=== PATIENT | male | born 1985 | race Caucasian/White ===

== ENCOUNTER 2017-06-04 13:28 | Observation (INO) ==
--- NOTE | 2017-06-04 15:49 | Emergency Department Note ---
START Narrative - START START: I examined this patient and my medical decision-making was reviewed with the Resident Physician. I agree with the documented findings, disposition and treatment plan as described except to the extent set forth below. 32 YO Male here for abd pain. will check labs, Urine, possible CT scan to eval appendix as well vss afebrile
[2017-06-04] MEDS ORDERED: *HR* Morphine 2 MG/ML SYRINGE IVP ONE (15:51)
[2017-06-04] MEDS ORDERED: Ondansetron 4 MG/2 ML VIAL IVP ONE (15:51)
--- NOTE | 2017-06-04 15:55 | Emergency Department Note ---
Disposition Clinical Impression: Acute appendicitis Qualifiers: Acute appendicitis type: unspecified acute appendicitis type Qualified Code(s) : K35.80 - Unspecified acute appendicitis Disposition: Admitted As Inpatient Condition: Good Referrals: NONE,PCP [Primary Care Provider] - Forms: Work/School Release, ED Satisfaction Letter Time of Disposition: 17:26 Abdominal Pain HPI - General Chief Complaint: ED Abdominal Pain Stated Complaint: Appendicitis Time Seen by Provider: 06/04/17 15:46 Source: patient, EMS Mode of arrival: EMS Limitations: no limitations Nursing Notes Reviewed: Yes Vital Signs Reviewed: Yes - History of Present Illness HPI Narrative: 32-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 Patient states he began to experience pain around his umbilical area 1 AM this morning. Pain was severe described as a throbbing sensation. He attempted to sleep it off cannot. States pain has moved gradually to the right lower quadrant. He has some nausea no vomiting. Denies any fever, cough, recent illness. Denies any chest pain or shortness of breath. Denies any urinary symptoms. Last bowel movement 2 days ago. No prior abdominal surgeries. States he had a recent endoscopy performed by GI Dr. Chong and recently started on omeprazole. Denies any bloody stool or black tarry stool. Went to the urgent care for evaluation and was sent here. Pain continues to process. Labs are ordered prior to my evaluation. Will get a CT scan to evaluate appendix. Pt Subjective Complaint: abdominal pain Pain Scale: 9 - Related Data Home Medications Medication Instructions Recorded Confirmed Omeprazole [PriLOSEC] 40 mg PO DAILY 12/26/16 06/04/17 Allergies Allergy/AdvReac Type Severity Reaction Status Date / Time No Known Allergies Allergy Verified 06/04/17 12:26 All systems ED: reviewed and negative except as stated. Review of Systems: As Per HPI Constitutional: Denies: fever, chills Cardiovascular: Denies: chest pain, dyspnea on exertion Respiratory: Denies: cough, dyspnea Gastrointestinal: Reports: abdominal pain, nausea. Denies: vomiting, diarrhea, melena, hematochezia Genitourinary: Denies: urgency, dysuria, frequency, hematuria, testicular pain Musculoskeletal: Denies: back pain, neck pain Integumentary: Denies: rash, abrasion, lesions Neurological: Denies: headache, weakness Abdominal Pain PMH - Past Medical History Medical history: Reports: GERD Male Surgical History: Reports: vasectomy Psychiatric history: Reports: no psych history - Social History Smoking status: Former smoker Alcohol use: Reports: occasionally Drug use: Reports: none Physical Exam - General Limitations: no limitations General appearance: alert, in no apparent distress - Head Head exam: atraumatic, normocephalic, normal inspection - Eye Eye exam: Present: normal appearance, EOMI. Absent: scleral icterus - ENT ENT exam: normal exam, normal oropharynx, mucous membranes moist - Neck Neck exam: Present: normal inspection, full ROM, trachea midline - Chest Chest inspection: Present: normal inspection, symmetric chest wall rise - Respiratory Respiratory exam: Present: normal lung sounds bilaterally. Absent: respiratory distress, wheezes - Cardiovascular Cardiovascular exam: Present: regular rate, normal rhythm, normal heart sounds. Absent: systolic murmur, diastolic murmur - Abdominal Exam Abdominal exam: Present: soft, tenderness, normal bowel sounds, obturator sign, tenderness at McBurney's Point. Absent: distention, guarding, rebound, rigidity , Mauricio's sign, Rovsing's sign Abdominal tenderness: Present: RLQ, mild - Extremities Exam Extremities exam: Present: normal inspection, full ROM, normal capillary refill. Absent: tenderness, pedal edema - Back Exam Back exam: Present: normal inspection, full ROM. Absent: tenderness, CVA tenderness (R), CVA tenderness (L) - Neurological Exam Neurological exam: Present: alert, oriented X3 - Skin Skin exam: Present: warm, dry, intact, normal color Course - Reevaluation(s) Reevaluation #1: CT shows findings consistent with appendicitis. Patient last had meal at [address] Garcia is currently in the room evaluated the patient. Zosyn has been ordered antibiotic. She is obtaining surgical consent. Patient is going to the operating room. Pain is currently controlled at this time after morphine. Impression is appendicitis. Time: 17:23 - Consultations Consultation #1: Spoke to Dr. Ferris, surgeon, will come evaluate for appendicitis. No further orders at this time. Time: 17:00 Vital Signs Temperature 98 F 06/04/17 14:04 Pulse Rate 69 06/04/17 14:04 Respiratory Rate 16 06/04/17 14:04 Blood Pressure 110/51 06/04/17 14:04 O2 Sat by Pulse Oximetry 98 06/04/17 14:04 Temperature 98 F 06/04/17 14:04 Pulse Rate 75 06/04/17 17:10 Respiratory Rate 18 06/04/17 17:10 Blood Pressure 121/67 06/04/17 17:10 O2 Sat by Pulse Oximetry 97 06/04/17 17:10 Oxygen Delivery Oxygen Delivery Room Air Abdominal Pain - Medical Records Medical records reviewed: Yes I reviewed the patient's medical records. - Lab Data Lab results reviewed: Yes I reviewed the patient's lab results. Result diagrams: 06/04/17 15:57 06/04/17 15:57 Lab Results 06/04/17 06/04/17 Range/Units 15:57 15:57 WBC 17.0 H (4.3-11.1) K/mcL RBC 5.72 H (4.19-5.50) M/mcL Hgb 16.8 (12.9-16.9) g/dL Hct 49.3 (37.5-50.1) % MCV 86.2 (83.0-100.0) fL MCH 29.4 (28.0-33.3) pg MCHC 34.1 (31.6-35.5) g/dL RDW 12.0 (11.5-14.5) % Plt Count 226 (140-400) K/mcL MPV 10.0 (9.4-12.4) fL Immature Gran % 0.4 (0-4) % Seg Neutrophils % 83.3 % Lymphocytes % 10.3 % Monocytes % 5.4 % Eosinophils % 0.4 % Basophils % 0.2 % Neutrophils # 14.1 H (1.6-8.9) K/mcL Lymphocytes # 1.7 (0.6-4.6) K/mcL Monocytes # 0.9 (0.0-1.3) K/mcL Eosinophils # 0.1 (0.0-0.6) K/mcL Basophils # 0.0 (0.0-0.2) K/mcL Sodium 139 (136-145) mEq/L Potassium 3.7 (3.5-4.5) mEq/L Chloride 100 (98-109) mEq/L Carbon Dioxide 29 (19-29) mEq/L BUN 16 (8-26) mg/dL Creatinine 1.10 (0.72-1.25) mg/dL Est GFR ( Amer) > 60 (> 60) Est GFR (Non-Af Amer) > 60 (> 60) BUN/Creatinine Ratio 15 (6-26) Glucose 93 (70-99) mg/dL Calculated Osmolality 289 (280-300) Calcium 10.2 (8.6-10.8) mg/dL Total Bilirubin 0.8 (0.2-1.2) mg/dL Direct Bilirubin 0.3 (0.0-0.5) mg/dL Indirect Bilirubin 0.5 (0.0-1.2) mg/dL AST 35 H (5-34) Units/L ALT 52 (0-55) Units/L Alkaline Phosphatase 66 (38-126) Units/L Serum Total Protein 8.6 H (6.0-8.3) g/dL Albumin 4.8 (3.5-5.0) g/dL Globulin 3.8 H (2.4-3.5) g/dL Albumin/Globulin Ratio 1.3 (1.1-2.2) Lipase 14 (8-78) Units/L
[2017-06-04 16:33] LABS: Basophils % 0.2 %; Eosinophils # 0.1 K/mcL (0.0-0.6); Eosinophils % 0.4 %; Hematocrit 49.3 % (37.5-50.1); Hemoglobin 16.8 g/dL (12.9-16.9); Immature Granulocytes % 0.4 % (0-4); Lymphocytes # 1.7 K/mcL (0.6-4.6); Lymphocytes % 10.3 %; Mean Corpuscular HGB Conc 34.1 g/dL (31.6-35.5); Mean Corpuscular Hemoglobin 29.4 pg (28.0-33.3); Mean Corpuscular Volume 86.2 fL (83.0-100.0); Monocytes # 0.9 K/mcL (0.0-1.3); Monocytes % 5.4 %; Neutrophils # 14.1 K/mcL (1.6-8.9); Platelet Count 226 K/mcL (140-400); Red Blood Count 5.72 M/mcL (4.19-5.50); Segmented Neutrophils % 83.3 %
[2017-06-04 16:54] LABS: Alanine Aminotransferase 52 Units/L (0-55); Albumin 4.8 g/dL (3.5-5.0); Albumin/Globulin Ratio 1.3 (1.1-2.2); Alkaline Phosphatase 66 Units/L (38-126); Aspartate Amino Transferase 35 Units/L (5-34); BUN/Creatinine Ratio 15 (6-26); Bilirubin,Direct 0.3 mg/dL (0.0-0.5); Bilirubin,Indirect 0.5 mg/dL (0.0-1.2); Bilirubin,Total 0.8 mg/dL (0.2-1.2); Blood Urea Nitrogen 16 mg/dL (8-26); Calcium 10.2 mg/dL (8.6-10.8); Carbon Dioxide 29 mEq/L (19-29); Chloride 100 mEq/L (98-109); Globulin 3.8 g/dL (2.4-3.5); Glucose 93 mg/dL (70-99); Lipase 14 Units/L (8-78); Osmolality,Calculated 289 (280-300); Potassium 3.7 mEq/L (3.5-4.5); Sodium 139 mEq/L (136-145); Total Protein 8.6 g/dL (6.0-8.3); eGFR For African Americans > 60 (> 60); eGFR For Non-African Americans > 60 (> 60)
[2017-06-04] MEDS ORDERED: *HR* FentaNYL (PF) 100 MCG/2 ML VIAL ONE (17:10)
[2017-06-04] MEDS ORDERED: *HR* Propofol 200 MG/20 ML VIAL IVP ONE (17:11)
[2017-06-04] MEDS ORDERED: *HR* Midazolam HCl 2 MG/2 ML VIAL ONE (17:11)
[2017-06-04] MEDS ORDERED: Lidocaine -MPF 2% 2 ML VIAL ONE (17:12)
[2017-06-04] MEDS ORDERED: *HR* Rocuronium Bromide 50 MG/5 ML VIAL ONE (17:13)
[2017-06-04] MEDS ORDERED: Lidocaine -MPF 4% 5 ML AMPUL ONE (17:15)
[2017-06-04] MEDS ORDERED: Piperacillin/Tazobactam 3.375 GM in D5% in Water (Mini-Bag+) 100 ML IVPB ONE (17:16)
--- NOTE | 2017-06-04 17:30 | General Surg History&Physical ---
Date of Encounter: 06/04/17 Time of Encounter: 17:25 Assessment and Plan (1) Leukocytosis Current Visit: Yes Status: Acute The assessment and plan as outlined above was discussed with the patient and/or family members who expressed understanding and agreement. All questions were answered. start zosyn, trend wbc Qualifiers: Leukocytosis type: unspecified Qualified Code(s): D72.829 - Elevated white blood cell count, unspecified (2) Acute appendicitis Current Visit: Yes Status: Acute The assessment and plan as outlined above was discussed with the patient and/or family members who expressed understanding and agreement. All questions were answered. discussed CT and labs with patient, will plan laparoscopic appendectomy, possible open, risks and benefits discussed and patient wishes to proceed npo prn pain control zosyn ivf hydration gi/dvt prophylaxis Qualifiers: Acute appendicitis type: unspecified acute appendicitis type Qualified Code (s): K35.80 - Unspecified acute appendicitis History of Present Illness Chief complaint: abdominal pain HPI: Mr. Ramesh is a 32 year old male who developed upper abdominal pain last night. The pain is sharp and is now in the right lower quadrant. He has had nausea and dry heaves. Denies diarrhea. No fevers, chills or night sweats. He presented to ED today and CT shows acute appendicitis and wbc 17. Past Med Surg Social Fam HX - Past Medical History Source: patient Medical history: GERD (Barretts esophagus) Psychiatric history: no psych history - Past Surgical History Surgical History: vasectomy - Social History Smoking Status: Former smoker Smokeless Tobacco Status: No Alcohol use: occasionally Drug use: none Medications and Allergies Omeprazole [PriLOSEC] 40 mg PO DAILY 12/26/16 [History] 3 Allergy/AdvReac Type Severity Reaction Status Date / Time No Known Allergies Allergy Verified 06/04/17 12:26 Review of Systems All systems PM: reviewed and no additional remarkable complaints except as stated All systems PM: A 10-system review of systems was performed and is negative for pertinent findings except as documented above in the HPI. General Surgery Exam Initial Vital Signs Temp Pulse Resp BP Pulse Ox 98 F 69 16 110/51 98 06/04/17 14:04 06/04/17 14:04 06/04/17 14:04 06/04/17 14:04 06/04/17 14:04 - General physical appearance well developed, well nourished, no distress, moderate pain - Eyes PERRL, normal ocular movement - ENT normal mucosa, normocephalic - Neck trachea midline - Respiratory normal expansion, normal respiratory effort - Cardiovascular Cardiovascular exam: Present: RRR - Abdomen Abdomen general surgery: Present: bowel sounds present, soft, tender (RLQ no rebound or guarding) - Integumentary Integumentary general surgery: Present: warm and dry, no abnormal pigmentation - Neurologic Present: CN 2-12 grossly intact - Musculoskeletal Present: normal gait, normal posture - Psychiatric Psychiatric general surgery: Present: A&Ox3, speech is normal Results - Labs 06/04/17 15:57 06/04/17 15:57 Abnormal lab results WBC 17.0 K/mcL (4.3-11.1) H 06/04/17 15:57 RBC 5.72 M/mcL (4.19-5.50) H 06/04/17 15:57 Neutrophils # 14.1 K/mcL (1.6-8.9) H 06/04/17 15:57 AST 35 Units/L (5-34) H 06/04/17 15:57 Serum Total Protein 8.6 g/dL (6.0-8.3) H 06/04/17 15:57 Globulin 3.8 g/dL (2.4-3.5) H 06/04/17 15:57 Diabetes panel 06/04/17 Range/Units 15:57 Sodium 139 (136-145) mEq/L Potassium 3.7 (3.5-4.5) mEq/L Chloride 100 (98-109) mEq/L Carbon Dioxide 29 (19-29) mEq/L BUN 16 (8-26) mg/dL Creatinine 1.10 (0.72-1.25) mg/dL Glucose 93 (70-99) mg/dL Calcium 10.2 (8.6-10.8) mg/dL AST 35 H (5-34) Units/L ALT 52 (0-55) Units/L Alkaline Phosphatase 66 (38-126) Units/L Albumin 4.8 (3.5-5.0) g/dL Calcium panel 06/04/17 Range/Units 15:57 Calcium 10.2 (8.6-10.8) mg/dL Albumin 4.8 (3.5-5.0) g/dL Pituitary panel 06/04/17 Range/Units 15:57 Sodium 139 (136-145) mEq/L Potassium 3.7 (3.5-4.5) mEq/L Chloride 100 (98-109) mEq/L Carbon Dioxide 29 (19-29) mEq/L BUN 16 (8-26) mg/dL Creatinine 1.10 (0.72-1.25) mg/dL Glucose 93 (70-99) mg/dL Calcium 10.2 (8.6-10.8) mg/dL Adrenal panel 06/04/17 Range/Units 15:57 Sodium 139 (136-145) mEq/L Potassium 3.7 (3.5-4.5) mEq/L Chloride 100 (98-109) mEq/L Carbon Dioxide 29 (19-29) mEq/L BUN 16 (8-26) mg/dL Creatinine 1.10 (0.72-1.25) mg/dL Glucose 93 (70-99) mg/dL Calcium 10.2 (8.6-10.8) mg/dL Total Bilirubin 0.8 (0.2-1.2) mg/dL AST 35 H (5-34) Units/L ALT 52 (0-55) Units/L Alkaline Phosphatase 66 (38-126) Units/L Albumin 4.8 (3.5-5.0) g/dL All other labs normal. - Imaging CT scan - abdomen: report reviewed, image reviewed CT scan - pelvis: report reviewed, image reviewed
[2017-06-04 17:31] LABS: Bilirubin,Urine Negative (Negative); Blood,Urine Negative (Negative); Clarity,Urine Clear (Clear); Color,Urine Dark Yellow (Yellow); Glucose,Urine (UA) Normal (Normal); Ketones,Urine Trace mg/dL (Negative); Leukocyte Esterase,Urine Trace (Negative); Nitrite,Urine Negative (Negative); Protein,Urine 100 mg/dL (Neg-Trace); Specific Gravity,Urine > 1.030 (1.010-1.025); Urobilinogen,Urine Normal (Normal)
[2017-06-04 17:33] LABS: Bacteria,Urine None Seen per hpf (None-Few); Hyaline Casts,Urine Few per lpf (None-Few); Squamous Epithelial Cell,Urine Moderate per lpf (None-Few); WBC,Urine 0-3 per hpf (0-3)
[2017-06-04] MEDS ORDERED: *HR* Succinylcholine 200 MG/10 ML VIAL IVP ONE (17:44)
--- NOTE | 2017-06-04 18:06 | Anesthesia Evaluation PreOp ---
Date of Encounter: 06/04/17 Time of Encounter: 18:04 - Past History Planned Operation: Lap appy Cardiac History: Denies any Significant Hx Pulmonary History: Denies Any Significant HX GRE TUTOR History: Denies Any Significant HX Other Medical History: GERD (Deluna's; symptoms well controlled on medications) Anesthesia History: No Prior Anesthetic Complications (no fhx of problems w anesthesia) Alcohol Use: occasionally Drug use: none Medications and Allergies Omeprazole [PriLOSEC] 40 mg PO DAILY 12/26/16 [History] 3 Allergy/AdvReac Type Severity Reaction Status Date / Time No Known Allergies Allergy Verified 06/04/17 12:26 - Meds/Allergy Pre-op Review Medications Reviewed: Yes Allergies Reviewed: Yes Beta Blockers on Current Med List: No Anesthesia Results - Labs 06/04/17 15:57 06/04/17 15:57 Anesthesia Exam Last Vital Signs Temp 98 F 06/04/17 14:04 Pulse 75 06/04/17 17:10 Resp 18 06/04/17 17:47 BP 121/67 06/04/17 17:47 Pulse Ox 97 06/04/17 17:10 Weight: 112 kg NPO (# of Hours): >> 8 hrs - HEENT Pupil (Motor): Pupils equal, EOMI Mallampati: II Teeth: Normal Oral Opening: Greater than 3 - GRE TUTOR LOC: Oriented GRE TUTOR Motor: Normal RUE, Normal LUE, Normal RLE, Normal LLE, Normal Face - Cardiac Rhythm: Regular Murmur: None - Pulmonary Breath Sounds: bilateral Clear Respiratory Effort: Symmetrical Anesthesia Assess/Plan ASA Score: 1 Modified Walker Scale for Level of Consciousness: Cooperative, oriented, and tranquil Anesthetic Plan: General Monitoring Plan: Standard Monitors Recovery Plan: PACU
[2017-06-04] MEDS ORDERED: Dexamethasone 4 MG/ML VIAL ONE (18:27)
[2017-06-04] MEDS ORDERED: Ondansetron 4 MG/2 ML VIAL ONE (18:27)
[2017-06-04] MEDS ORDERED: Neostigmine Methylsulfate 3 MG/3 ML SYRINGE ONE (18:43)
[2017-06-04] MEDS ORDERED: *HR* Promethazine 25 MG/ML VIAL IVP PRN ×2 (18:46→21:06)
[2017-06-04] MEDS ORDERED: *HR* HYDROmorphone (PF) 1 MG/ML SYRINGE IVP PRN ×2 (18:46→21:06)
[2017-06-04] MEDS ORDERED: Ketorolac 30 MG/ML VIAL ONE (18:49)
--- NOTE | 2017-06-04 19:05 | Operative Note ---
Date of procedure: 06/04/17 Pre-op diagnosis: acute appendicitis Post-op diagnosis: same Procedure: Laparoscopic appendectomy Complications: none immediate Anesthesia: GETA, local Local Anesthetics: 0.5% Sensorcaine HCL SubQ (cc) (30) Surgeon: Cornelia Ferris Estimated blood loss (cc): 4 Specimen: appendix Condition: stable Disposition: PACU Procedure in Detail: The patient was brought into the operating suite and placed supine on the operating table. Sign-in was performed and everyone was in agreement. Anesthesia was induced and patient was endotracheally intubated by anesthesia without incident. An OG tube was placed by anesthesia. The abdomen was prepped and draped in the usual sterile fashion. A timeout was performed and again everyone was in agreement. A supraumbilical incision was made through the skin and the subcutaneous tissue with an 11 blade. Towel clamps were placed on either side of the umbilicus for retraction. S-retractors were used to dissect down to the anterior abdominal wall linea alba fascia. A Veress needle was placed into this incision and a water drop test confirmed placement and the abdomen was insufflated. We then entered the abdomen with the 5 mm 0 degree laparoscope on a 5 mm X-kathy trocar. The area under entry was visualized and there was no bleeding and no apparent bowel injury. We placed a suprapubic 5 mm port under direct visualization after first incising the skin with an 11 blade. The laparoscope was placed through this and we exchanged the supraumbilical port for a 12 mm port under direct visualization. We then placed another 5 mm port in the left lower quadrant position under direct visualization after first incising the skin with an 11 blade. The patient was placed in slight Trendelenburg left side down position. The cecum was located as was the appendix. The appendix was grasped and retracted anteriorly and caudally with a laparoscopic [place]. A [place] was used to dissect between the mesoappendix and the appendix at the base of the cecum. The mesoappendix was transected with a laparoscopic flex-ex ETS stapler using a white load. The appendix was transected at the base of the cecum with the same stapler utilizing a white load. The appendix was placed in a laparoscopic Endo Catch bag and removed via the supraumbilical incision site. Both staple lines were evaluated and there was no bleeding and both staple lines were intact. The area was irrigated with sterile saline which was then suctioned free from the abdomen. The insufflation was suctioned free from the abdomen and all trochars removed. We closed the abdominal wall at the supraumbilical incision site with an 0 Vicryl [id number] stitch. A 30 cc of 0.5% Marcaine was injected subcutaneously at the 3 port sites. The skin at the two 5 mm port sites was closed with 4-0 Monocryl interrupted subcuticular stitches. The skin at the supraumbilical incision site was closed with a 4-0 Monocryl running subcuticular stitch. Steri-Strips were applied to the wounds. The patient was extubated in the OR and tolerated the procedure well and was taken to PACU after all lap and instrument counts were correct at the end of the case.
--- NOTE | 2017-06-04 19:10 | Discharge Summary ---
<BarringtonCornelia Rosario - Last Filed: 06/04/17 19:08> Date of Encounter: 06/05/17 Time of Encounter: 13:08 - Discharge Diagnosis (1) Leukocytosis Priority: Secondary Status: Acute Qualifiers: Leukocytosis type: unspecified Qualified Code(s): D72.829 - Elevated white blood cell count, unspecified (2) Acute appendicitis Priority: Primary Status: Acute Qualifiers: Acute appendicitis type: unspecified acute appendicitis type Qualified Code (s): K35.80 - Unspecified acute appendicitis (3) GERD (gastroesophageal reflux disease) Priority: Secondary Status: Chronic Qualifiers: Esophagitis presence: esophagitis presence not specified Qualified Code(s) : K21.9 - Gastro-esophageal reflux disease without esophagitis - Discharge Medications Prescriptions: Ondansetron ODT [Zofran ODT] 4 mg SL Q4HR PRN #30 tab.rapdis PRN Reason: Nausea OxyCODONE/APAP 10/325 [Percocet 10/325 MG] 1 each PO Q4HR PRN #30 tablet PRN Reason: Pain Docusate [Colace] 100 mg PO BID #60 capsule Home Medications: Omeprazole [PriLOSEC] 40 mg PO DAILY 12/26/16 [History] Docusate [Colace] 100 mg PO BID #60 capsule 06/05/17 [Rx] Ondansetron ODT [Zofran ODT] 4 mg SL Q4HR PRN #30 tab.rapdis 06/05/17 [Rx] OxyCODONE/APAP 10/325 [Percocet 10/325 MG] 1 each PO Q4HR PRN #30 tablet [Rx] Allergies/Adverse Reactions: 3 Allergy/AdvReac Type Severity Reaction Status Date / Time No Known Allergies Allergy Verified 06/04/17 12:26 General Surgery Exam Initial Vital Signs Temp Pulse Resp BP Pulse Ox 98 F 69 16 110/51 98 06/04/17 14:04 06/04/17 14:04 06/04/17 14:04 06/04/17 14:04 06/04/17 14:04 - General physical appearance well developed, well nourished, no distress - Eyes PERRL, normal ocular movement - ENT normal mucosa, normocephalic - Neck trachea midline - Respiratory normal expansion, normal respiratory effort - Cardiovascular Cardiovascular exam: Present: RRR - Abdomen Abdomen general surgery: Present: bowel sounds present, soft, tender ( appropriate post op tenderness) - Incision Incision: Present: clean and dry, intact - Integumentary Integumentary general surgery: Present: warm and dry, no abnormal pigmentation - Neurologic Present: CN 2-12 grossly intact - Musculoskeletal Present: normal gait, normal posture - Psychiatric Psychiatric general surgery: Present: A&Ox3, speech is normal Date of admission: 06/04/17 17:46 Primary care physician: PCP NONE Discharging clinician: Cornelia Ferris Anticipated date of discharge: 06/05/17 - Patient Status Disposition: Home, Self-Care Condition: Good Overall status at discharge: patient is progressing back to baseline - Discharge Instructions Instructions: Laparoscopic Appendectomy (DC) Follow Up With: Cayla Goldstein CNP [Advanced Practice Nurse] - 06/23/17 9:00 am (2 weeks after surgery) Forms: Inpatient Work/School Release Additional Instructions: No lifting more than 20 pounds for 2 weeks. Okay to take a shower in 24 hours. No tub baths or pools for 1 week. Okay to ride in the car wearing a seatbelt and climb steps. No driving until off narcotics for 24 hours and able to react safely Remove Steri-Strips in 1 week Do not take pain medicine/narcotics on an empty stomach it will likely cause nausea and possibly vomiting. If pain medication is too strong okay to break in half - Diet and Activity Activity: increase activity as tolerated - Hospital Course Hospital course: Mr. Ramesh is a 32 year old male presented with acute appendicitis. He underwent an uncomplicated laparoscopic appendectomy. He was treated with IV antibiotics. Pain was controlled initially with iv medication and transitioned to po. He was started on clears and advanced as he tolerates. He was discharged home in stable condition. - Time Spent with Patient Total time spent providing and/or coordinating discharge services: <Cristin Ferguson - Last Filed: 06/05/17 11:48> Date of Encounter: 06/05/17 General Surgery Exam Initial Vital Signs Temp Pulse Resp BP Pulse Ox 98 F 69 16 110/51 98 06/04/17 14:04 06/04/17 14:04 06/04/17 14:04 06/04/17 14:04 06/04/17 14:04 - Additional Findings He has ambulating without difficulty, tolerating liquids without nausea or vomiting, and voiding without difficulty. His discomfort is controlled on the current regimen. He requests dispel at this time. We will begin discharge planning. Date of admission: 06/04/17 17:46 Primary care physician: PCP NONE - Patient Status Functional capacity at discharge: independent ambulation Overall status at discharge: patient is progressing back to baseline - Diet and Activity Activity: increase activity as tolerated Diet: advance to your usual diet - Hospital Course Hospital course: Mr. Ramesh is a 32 year old male - Time Spent with Patient Total time spent providing and/or coordinating discharge services: Labs on day of discharge: Labs from last 24 hours 06/05/17 04:20 WBC 14.6 H RBC 4.82 Hgb 14.6 D Hct 42.0 MCV 87.1 MCH 30.3 MCHC 34.8 RDW 12.2 Plt Count 213 MPV 10.2 Immature Gran % 0.5 Seg Neutrophils % 85.9 Lymphocytes % 9.6 Monocytes % 3.9 Eosinophils % 0.0 Basophils % 0.1 Neutrophils # 12.6 H Lymphocytes # 1.4 Monocytes # 0.6 Eosinophils # 0.0 Basophils # 0.0
[2017-06-04] MEDS ORDERED: Naloxone 0.4 MG/ML INJ ONE (19:11)
--- NOTE | 2017-06-04 20:03 | Anesthesia Evaluation Post Op ---
Date of Encounter: 06/04/17 Time of Encounter: 20:03 - Vital Signs Vital Signs: Vital Signs/O2 Sat, Most Current Temp Pulse Resp BP Pulse Ox 98.4 F 63 16 118/52 98 06/04/17 19:50 06/04/17 19:50 06/04/17 19:50 06/04/17 19:50 06/04/17 19:50 - Lungs Lungs: Clear Ascult./Percussion - Airway Airway: Non-obstructed - Cardiovascular Regular Rate - Mental Status Mental Status: Alert & Oriented, Answers Appropriately - Pain Pain Scale: 0 Pain Scale used: Numeric (1 - 10) - Nausea Vomiting Nausea Vomiting: Not Present - Hydration Hydration: Tolerates oral liquids, Has not voided - Discharge PostOp Status: Transfer Patient to floor
[2017-06-04] MEDS ORDERED: *HR* OxyCODONE/APAP 5/325 TABLET PO PRN (21:06)
[2017-06-04] MEDS ORDERED: 0.9 % Sodium Chloride 1,000 ML IVC SCH (21:06)
[2017-06-04] MEDS ORDERED: Ondansetron 4 MG/2 ML VIAL IVP PRN (21:06)
[2017-06-04] MEDS ORDERED: Naloxone 0.4 MG/ML INJ IVP PRN (21:06)
[2017-06-04] MEDS ORDERED: *HR* Metoprolol 5 MG/5 ML VIAL IVP PRN (21:06)
[2017-06-05] MEDS: Piperacillin/Tazobactam 3.375 GM in D5% in Water (Mini-Bag+) 100 ML IVPB SCH ×2 (00:29→08:51)
[2017-06-05 04:58] LABS: Basophils % 0.1 %; Immature Granulocytes % 0.5 % (0-4); Lymphocytes # 1.4 K/mcL (0.6-4.6); Lymphocytes % 9.6 %; Mean Corpuscular HGB Conc 34.8 g/dL (31.6-35.5); Mean Corpuscular Hemoglobin 30.3 pg (28.0-33.3); Mean Corpuscular Volume 87.1 fL (83.0-100.0); Mean Platelet Volume 10.2 fL (9.4-12.4); Monocytes # 0.6 K/mcL (0.0-1.3); Monocytes % 3.9 %; Neutrophils # 12.6 K/mcL (1.6-8.9); Platelet Count 213 K/mcL (140-400); Red Blood Count 4.82 M/mcL (4.19-5.50); Red Cell Distribution Width 12.2 % (11.5-14.5); Segmented Neutrophils % 85.9 %
[2017-06-05 05:01] LABS: Hemoglobin 14.6 g/dL (12.9-16.9)
[2017-06-05 06:30] VITALS: BP 101/52
== END 2017-06-05 12:38 | disposition home or self-care (01) ==
LOC: 3ANU 13:28 → EMEROO 13:28 → 3ANU 17:43
PROVIDERS: ADMIT Surgery; ATTEND Surgery